=== PATIENT | male | born 1940 | race Caucasian/White ===

== ENCOUNTER → 2016-06-30 | Outpatient (CLI) | payer OTHER ==
[~2016-06-30] MED LIST: IOPAMIDOL (ISOVUE-300) 100 ML BTL IV ONE
== END ==
LOC: CIMAGING 10:40
PROVIDERS: ATTEND Specialist
DX: R31.9 Hematuria, unspecified (principal); N40.0 Benign prostatic hyperplasia without lower urinary tract symptoms; N28.1 Cyst of kidney, acquired
CPT/HCPCS: 74178; Q9967

== ENCOUNTER → 2016-08-05 | Outpatient (CLI) | payer OTHER | LOC: BMCIMAGING 10:37 | PROVIDERS: ATTEND Internal Medicine | DX: R06.02 Shortness of breath (principal) ==

== ENCOUNTER → 2016-08-20 | Outpatient (CLI) | payer OTHER | LOC: BHFA 13:00 | PROVIDERS: ATTEND Internal Medicine Cardiovascular Disease | DX: I44.7 Left bundle-branch block, unspecified (principal); R00.2 Palpitations | CPT/HCPCS: 78452; 93017; A9500; J2785 ==

== ENCOUNTER 2016-08-24 15:02 | Inpatient (IN) | payer OTHER ==
--- NOTE | 2016-08-24 16:32 | EDPHY ---
H & P Stated Complaint: tim tomorrow Time Seen by Provider: 08/24/16 15:53 HPI/ROS: CHIEF COMPLAINT: Pre syncope HISTORY OF PRESENT ILLNESS: The patient is a 75-year-old gentleman who comes to the emergency department for admission for pre syncope and arrhythmia. I saw him in conjunction with Dr. Caballero who will admit him. He has a history of intermittent dizzy spells for the last couple of years. He had a interventricular conduction delay history which recently progressed to left bundle branch block. He recently had an adenosine stress test that was negative other than a nonspecific AV block. He was placed with a monitor and today during a episode of presyncope found to be in 2nd degree type [address] Caballero told him to come to the hospital be admitted to Dr. Caballero's service. He will be fitted with pacemaker during his stay. REVIEW OF SYSTEMS: Constitutional: denies: chills, fever, recent illness, recent injury EENTM: denies: blurred vision, double vision, nose congestion Respiratory: denies: cough, shortness of breath Cardiac: See HPI Gastrointestinal/Abdominal: denies: abdominal pain, diarrhea, nausea, vomiting, blood streaked stools Genitourinary: denies: dysuria, frequency, hematuria, pain Musculoskeletal: denies: joint pain, muscle pain Skin: denies: lesions, rash, jaundice, bruising Neurological: denies: headache, numbness, paresthesia, tingling, dizziness, weakness Hematologic/Lymphatic: denies: blood clots, easy bleeding, easy bruising Immunologic/allergic: denies: HIV/AIDS, transplant EXAM: GENERAL: Well-appearing, well-nourished and in no acute distress. HEAD: Atraumatic, normocephalic. EYES: Pupils equal round and reactive to light, extraocular movements intact, sclera anicteric, conjunctiva are normal. ENT: TMs normal, nares patent, oropharynx clear without exudates. Moist mucous membranes. NECK: Normal range of motion, supple without lymphadenopathy or JVD. LUNGS: Breath sounds clear to auscultation bilaterally and equal. No wheezes rales or rhonchi. HEART: Regular rate and rhythm without murmurs, rubs or gallops. ABDOMEN: Soft, nontender, normoactive bowel sounds. No guarding, no rebound. No masses appreciated. BACK: No CVA tenderness, no spinal tenderness, step-offs or deformities EXTREMITIES: Normal range of motion, no pitting or edema. No clubbing or cyanosis. NEUROLOGICAL: Cranial nerves II through XII grossly intact. Normal speech, normal gait. 5/5 strength, normal movement in all extremities, normal sensation PSYCH: Normal mood, normal affect. SKIN: Warm, dry, normal turgor, no visible rashes or lesions. Source: Patient Exam Limitations: No limitations - Personal History Current Tetanus Diphtheria and Acellular Pertussis (TDAP): Yes - Medical/Surgical History Hx Asthma: No Hx Chronic Respiratory Disease: No Hx Diabetes: No Hx Cardiac Disease: No Hx Renal Disease: No Hx Cirrhosis: No Hx Alcoholism: No Hx HIV/AIDS: No Hx Splenectomy or Spleen Trauma: No Other PMH: LBBB, BPH, high cholesterol, hemorrhoid surg - Family History Significant Family History: No pertinent family hx - Social History Smoking Status: Never smoked Alcohol Use: Sober Drug Use: None Constitutional: Initial Vital Signs Temperature (C) 36.9 C 08/24/16 15:12 Heart Rate 64 08/24/16 15:12 Respiratory Rate 16 08/24/16 15:12 Blood Pressure 136/84 H 08/24/16 15:12 O2 Sat (%) 95 08/24/16 15:12 O2 Delivery Mode Room Air Allergies/Adverse Reactions: ampicillin Allergy (Verified 08/25/16 15:55) Tetracyclines Allergy (Verified 08/24/16 16:55) Home Medications: Medication Instructions Recorded Aspirin [Aspirin 81mg (*)] 81 mg PO DAILY 08/24/16 Simvastatin [Zocor] 20 mg PO HS 08/24/16 Medical Decision Making - Diagnostics EKG Interpretation: An EKG obtained and was read and documented in trace view. Please see trace view for full reading and report. Left bundle branch block ED Course/Re-evaluation: The patient was seen in conjunction with a supervisor green end department. Will admit to their service for pacemaker placement. The patient is currently asymptomatic. EKG he shows stable left bundle branch block. Differential Diagnosis: Partial list of the Differential diagnosis considered include but were not limited to; arrhythmia, pre syncope, dehydration and although unlikely based on the history and physical exam, I also considered infection, head injury, seizure. - Data Points Medications Given: Discontinued Medications Bacitracin (Bacitracin 1000 Ml Irrigation) 50,000 units IRR ONCALL ONE Stop: 08/25/16 09:36 Last Admin: 08/25/16 17:10 Dose: Not Given Diazepam (Valium) 5 mg PO ONCALL ONE Stop: 08/25/16 09:36 Last Admin: 08/25/16 11:08 Dose: 5 mg Diphenhydramine HCl (Benadryl) 25 mg PO ONCALL ONE Stop: 08/25/16 09:36 Last Admin: 08/25/16 11:08 Dose: 25 mg Vancomycin/Sodium Chloride (Vancomycin 1 Gm (Premix)) 250 mls @ 250 mls/hr IV ONCALL ONE PRN Reason: Protocol Stop: 08/25/16 17:17 Last Admin: 08/25/16 17:11 Dose: Not Given Departure - Departure Disposition: [facility] Inpatient Acute Clinical Impression: Pre-syncope Condition: Fair
[2016-08-24] MEDS ORDERED: IBUPROFEN 200 MG TAB PO PRN (16:59)
[2016-08-24] MEDS ORDERED: TEMAZEPAM 15 MG CAP PO PRN (16:59)
--- NOTE | 2016-08-24 18:15 | CPEKG ---
Heart Rate: 55 RR Interval: 1091 P-R Interval: 216 QRSD Interval: 150 QT Interval: 472 QTC Interval: 452 P [place]: 37 QRS [place]: -57 T Wave [place]: 107 EKG Severity - ABNORMAL ECG - EKG Impression: SINUS RHYTHM EKG Impression: PROBABLE LEFT ATRIAL ABNORMALITY EKG Impression: LEFT BUNDLE BRANCH BLOCK EKG Impression: FIRST DEGREE AVB Electronically Signed By: Nehemias Taveras 28-Aug-2016 12:06:25
--- NOTE | 2016-08-24 18:16 | GHP ---
[f rep st] HISTORY AND PHYSICAL DATE OF ADMISSION: 08/24/2016 CHIEF COMPLAINT: We have been asked by Dr. Murguia to evaluate this patient with a chief complaint of presyncope. HISTORY OF PRESENT ILLNESS: This patient is a 75-year-old gentleman with risk factors including age and hyperlipidemia, who presents with a chief complaint of presyncope. The patient was in his [facility] until 3-6 months ago when he began to experience symptoms of lightheadedness. The re were no obvious precipitating or relieving factors. The patient denies symptoms of chest pain or palpitations with the event. He had an EKG done by his primary care physician, which demonstrated a left bundle branch block. He was referred to Cardiology for further evaluation. He had a nuclear stress test performed, which demonstrated no evidence of ischemia or infarction, and preserved left ventricular systolic function. During pharmacologic stress, the patient did develop a type 2 AV bl ock and he was subsequently scheduled for an event monitor. On the a.m. of admission, the patient r eports going out to breakfast with his and walking along the [employer]. While walking along the [employer], the patient did develop symptoms of lightheadedness and dizziness. Her e again, he denies symptoms of chest pain or palpitations with the event. Unfortunately, he was not wearing his monitor when his symptoms were most severe. Upon returning home, the patient placed hi s event monitor on and sent a rhythm strip to [employer]. The rhythm strip was notable for a second- degree type 2 AV block, and the patient presented to the emergency department for further evaluation . The patient denies further episodes of lightheadedness or dizziness. PAST MEDICAL HISTORY: 1. Hyperlipidemia. 2. Benign prostatic hypertrophy. 3. Degenerative disk disease. PAST SURGICAL HISTORY: Status post external hemorrhoidectomy. MEDICATIONS: 1. Aspirin 81 mg daily. 2. Simvastatin 20 mg daily. ALLERGIES: 1. AMPICILLIN. 2. TETRACYCLINES. SOCIAL HISTORY: The patient does not smoke. He denies problems with alcohol. He frequently travel s. FAMILY HISTORY: Noncontributory. REVIEW OF SYSTEMS: A 10-point review of systems is negative, except as noted in the HPI. The patie nt does report a recent hemorrhoidectomy with some pain in the area, but he has not required any heaven n medication as of recently. PHYSICAL EXAMINATION: GENERAL: The patient is resting comfortably in bed. He does not appear to b e in acute distress. VITAL SIGNS: Temperature is afebrile. Pulse is 64, blood pressure 136/84, re spiratory rate 16, SaO2 95% on room air. HEENT: Normocephalic, atraumatic. Extraocular muscles in tact. The patient does were glasses. NECK: No JVD. No bruits. LUNGS: Clear to auscultation juan pablo aterally. CARDIOVASCULAR: Regular rate and rhythm. S1 paradoxically split S2. Grade 2/6 holosyst olic murmur is noted at the left sternal border. ABDOMEN: Soft nontender, with normoactive bowel s ounds. No hepatosplenomegaly noted. SKIN: No evidence of rashes. EXTREMITIES: No edema. NEURO: The patient is awake, alert, and oriented x3. LABORATORIES: Pending at this time. IMAGING: EKG demonstrates sinus rhythm with left bundle branch block morphology. ASSESSMENT: This patient is a 75-year-old gentleman who presents with symptoms of presyncope. He h as a baseline left bundle branch block on his EKG. Subsequent event monitoring is notable for a sec ond degree type 2 AV block. PLAN: Reviewed the risks and benefits of pacemaker placement for symptom management. Will arrange to have this performed in the a.m. I would like to obtain an echocardiogram to evaluate for structu ral disease. However, prior to placement of the pacemaker, recent cardiovascular stress test demons trates no evidence of ischemia or infarction with preserved left ventricular systolic function. /[id number]/MODL
[2016-08-24] MEDS: ATORVASTATIN CALCIUM 10 MG TAB PO SCH ×3 (21:44→22:00)
[2016-08-25 08:10] LABS: HEMATOCRIT 45.8 % (40.0-51.0); HEMOGLOBIN 15.8 g/dL (13.7-17.5); MEAN CELL HEMOGLOBIN 31.2 pg (27.9-34.1); MEAN CELL HEMOGLOBIN CONCENTR. 34.5 g/dL (32.4-36.7); MEAN CELL VOLUME 90.3 fL (81.5-99.8); RED BLOOD CELL COUNT 5.07 10^6/uL (4.40-6.38)
[2016-08-25 08:19] LABS: INR 1.06 (0.83-1.16); PROTIME(PATIENT) 13.7 SEC (12.0-15.0)
[2016-08-25 08:25] LABS: ALANINE AMINOTRANSFERASE 36 IU/L (21-72); ALBUMIN 3.8 g/dL (3.5-5.0); ALKALINE PHOSPHATASE 53 IU/L (38-126); ANION GAP 7 mEq/L (8-16); ASPARTATE AMINOTRANSFERASE 21 IU/L (17-59); BILIRUBIN,TOTAL 1.5 mg/dL (0.1-1.4); BILIRUBIN-CONJUGATED 0.2 mg/dL (0.0-0.5); BILIRUBIN-UNCONJUGATED 1.3 mg/dL (0.0-1.1); CALCIUM 9.2 mg/dL (8.5-10.4); CARBON DIOXIDE 25 mEq/l (22-31); CHLORIDE 107 mEq/L (97-110); CHOLESTEROL 128 mg/dL (140-220); CHOLESTEROL/HDL RATIO 2.61 RATIO (1.00-4.97); GLOMERULAR FILTRATION RATE > 60; GLUCOSE 99 mg/dL (70-100); HIGH DENSITY LIPOPROTEIN 49 mg/dL (40-65); LDL/HDL RATIO 1.24 RATIO (1.00-3.64); LOW DENSITY LIPOPROTEIN 61 mg/dL (80-100); NON-HIGH DENSITY LIPOPROTEIN 79 mg/dL (90-129); POTASSIUM 4.3 mEq/L (3.5-5.2); SODIUM 139 mEq/L (134-144); TOTAL PROTEIN 6.4 g/dL (6.3-8.2); TRIGLYCERIDE 93 mg/dL (40-150); VERY LOW DENSITY LIPOPROTEINS 18 mg/dL (8-25)
[2016-08-25] MEDS ORDERED: ATORVASTATIN CALCIUM 10 MG TAB PO SCH (09:00)
[2016-08-25] MEDS ORDERED: DIAZEPAM 5 MG TAB PO ONE (09:35)
[2016-08-25] MEDS ORDERED: BACITRACIN IRRIGATION/NS 50,000 UNITS/1,000 ML BTL IRR ONE (09:35)
[2016-08-25] MEDS ORDERED: diphenhydrAMINE 25 MG CAP PO ONE (09:35)
--- NOTE | 2016-08-25 09:35 | SOAPPROG ---
ANNIE Progress Note Assessment/Plan: Assessment: He has a history of known conduction system disease in the form of a left bundle branch block. Telemetry monitoring has indicated intermittent episodes of Mobitz type 2 second-degree AV block. At this point, he clearly has a class 1 indication for permanent pacing. The risks, benefits and alternatives were discussed with him today. He is in agreement. We will plan for left-sided implant. 08/25/16 09:34 Subjective: The patient was seen and examined. His chart was reviewed. The case was discussed with Dr. Nehemias Caballero. Has a history of a left anterior fascicular block which was documented recently to progress to a complete left bundle branch block. He has been experiencing symptoms of lightheadedness. On home telemetry monitoring ([employer]) it has been noted that he has had multiple episodes of Mobitz type 2 second-degree AV block. He has, however, not experienced prolonged pauses. He was asked to come into the hospital yesterday. He has been admitted overnight. Telemetry has demonstrated similar episodes of type 2 second-degree AV block. He states that today he feels a little lightheaded. He has not had full episodes of syncope. Objective: Vital Signs Temp Pulse Resp BP Pulse Ox 36.8 C 64 14 130/82 H 94 08/25/16 08:00 08/25/16 08:00 08/25/16 08:00 08/25/16 08:00 08/25/16 08:00 Laboratory Results 08/25/16 08:00 08/25/16 08:00 08/24/16 08/25/16 08/26/16 05:59 05:59 05:59 Intake Total 500 Balance 500 PT 13.7 SEC (12.0-15.0) 08/25/16 08:00 INR 1.06 (0.83-1.16) 08/25/16 08:00 Physical Exam - Physical Exam General Appearance: WD/WN, no apparent distress Neck: non-tender, full range of motion Respiratory: lungs clear, No crackles, No rales, No rhonchi Cardiac/Chest: regular rate, rhythm, No edema, No gallop, No JVD Peripheral Pulses: 2+: carotid (R), carotid (L) Abdomen: non-tender, soft Male Genitalia: deferred Rectal: deferred ICD10 Worksheet Patient Problems: Problems Problem Status Onset Pre-syncope Acute
[2016-08-25] MEDS ORDERED: NS 1,000 ML IV SCH (09:45)
--- NOTE | 2016-08-25 09:49 | ECHO ---
[id number] + + [address] : : [place] [address] : : [phone] + Adult Echocardiographic Report + ---+ :Name: ISIDRO FRANKEL JStudy Date: 08/25/2016 07:36 AM : : Hospital Admission Number: [id number] Location: 202: :: 1940 Gender: Male Height: 68 in : :Age: 75 yrs Race: WH Weight: 178 lb : :Reason For Study: LBBB/pre syncope : : BSA: 1.9 meters2 : + ---+ MMode/2D Measurements \T\ Calculations IVSd: 1.1 cm LVIDd: 4.1 cm FS: 21.8 % Ao root diam: LVPWd: 0.75 cm LVIDs: 3.2 cm EDV(Teich): 3.7 cm 75.7 ml LA dimension: ESV(Teich): 3.9 cm 42.0 ml EF(Teich): 44.6 % LVLd ap4: 8.0 cm SV(MOD-sp4): EDV(MOD-sp4): 59.0 ml 84.0 ml LVLs ap4: 6.8 cm ESV(MOD-sp4): 25.0 ml EF(MOD-sp4): 70.2 % Normal Measurement Values: + + :LVIDd (3.5-5.7cm) IVSd (0.6-1.1cm) LVPWd (0.6-1.1cm) Aortic Root (2.0-3.7cm)Left Atrium (1.5-4.0cm): :LV Vol(d) (76-115ml) LV Vol(s) (29-48ml) Ejec Fraction (50-65%)PV Candido (0.6- 1.2m/s) TV Candido (0.4-1.0m/s) : :MV E Candido (0.8-1.0m/s)MV A Candido (0.3-1.0m/s)LVOT Candido (0.7-1.2m/s) Asc Ao Candido ( 0.9-1.8m/s) : + + Doppler Measurements \T\ Calculations MV E max candido: 60.7 cm/sec Ao V2 max: 123.8 cm/sec TR max candido: 200.6 cm/sec MV A max candido: 75.5 cm/sec Ao max P.1 mmHg TR max P.1 mmHg MV E/A: 0.80 RAP systole: 5.0 mmHg RVSP(TR): 21.1 mmHg Left Ventricle The left ventricle is normal in size. There is mild asymetric septal hypertrophy. Left ventricular systolic function is normal. Ejection Fraction = 60-65%. Right Ventricle The right ventricle is normal in size and function. Atria The left atrial size is normal. Right atrial size is normal. Mitral Valve The mitral valve is normal in structure and function. There is no mitral valve stenosis. There is mild to moderate mitral regurgitation. Tricuspid Valve Normal tricuspid valve. There is trace tricuspid regurgitation. Right ventricular systolic pressure is normal. Aortic Valve The aortic valve is trileaflet. All three leaflets are sclerotic. There is no aortic stenosis. Mild aortic regurgitation. Pulmonic Valve The pulmonic valve is not well visualized. Trace pulmonic valvular regurgitation. Great Vessels The aortic root is normal size. Pericardium/Pleural There is no pericardial effusion. There is a fat pad seen. Conclusion A complete two-dimensional transthoracic echocardiogram was performed (2D, M-mode, Doppler and color flow Doppler). 1. The left ventricle is normal in size. There is mild asymetric septal hypertrophy. The Ejection Fraction = 60-65%. 2. The mitral valve is normal in structure and function. There is mild to moderate mitral regurgitation. 3. The aortic valve is trileaflet. All three leaflets are sclerotic. There is no aortic stenosis. Mild aortic regurgitation. 4. The pulmonary artery pressure estimate is with in normal limits. 5. No old studies for comparison. Final Reading Physician: Nehemias Caballero MD electronically signed on 08/25/2016 09:48 AM Ordering Physician: Nehemias Caballero Performed By: Zandra Lara RDCS
[2016-08-25] MEDS ORDERED: fentaNYL 100 MCG/2 ML INJ ONE ×2 (13:20→13:37)
[2016-08-25] MEDS ORDERED: LIDOCAINE 1% 300 MG/30 ML SDV ONE (13:20)
[2016-08-25] MEDS ORDERED: BUPIVACAINE 0.5% 30 ML SDV ONE (13:21)
[2016-08-25] MEDS ORDERED: LIDO/EPI 1% **for epidural** 30 ML SDV ONE (13:21)
[2016-08-25] MEDS ORDERED: MIDAZOLAM 2 MG/2 ML VIAL ONE ×2 (13:21→13:37)
[2016-08-25] MEDS ORDERED: IOPAMIDOL (ISOVUE-300) 100 ML BTL ONE (13:22)
[2016-08-25] MEDS ORDERED: VANCOMYCIN HCL/NORMAL SALINE 250 ML IV ONE (16:18)
[2016-08-25] MEDS: ATORVASTATIN CALCIUM 10 MG TAB PO SCH (20:22)
[2016-08-26] MEDS ORDERED: BACITRACIN IRRIGATION/NS 50,000 UNITS/1,000 ML BTL IRR ONE (06:00)
[2016-08-26] MEDS ORDERED: diphenhydrAMINE 25 MG CAP PO ONE ×2 (06:00→14:26)
[2016-08-26] MEDS ORDERED: DIAZEPAM 5 MG TAB PO ONE (06:00)
[2016-08-26] MEDS ORDERED: VANCOMYCIN HCL/NORMAL SALINE 250 ML IV ONE (06:00)
--- NOTE | 2016-08-26 08:02 | CPEKG ---
Heart Rate: 59 RR Interval: 1017 P-R Interval: 208 QRSD Interval: 148 QT Interval: 464 QTC Interval: 460 P [place]: 31 QRS [place]: -53 T Wave [place]: 106 EKG Severity - ABNORMAL ECG - EKG Impression: SINUS RHYTHM EKG Impression: PROBABLE LEFT ATRIAL ABNORMALITY EKG Impression: LEFT BUNDLE BRANCH BLOCK Electronically Signed By: Nehemias Taveras 28-Aug-2016 12:06:02
[2016-08-26] MEDS ORDERED: LIDOCAINE 1% 300 MG/30 ML SDV ONE (13:02)
[2016-08-26] MEDS ORDERED: MIDAZOLAM 2 MG/2 ML VIAL ONE (13:02)
[2016-08-26] MEDS ORDERED: BUPIVACAINE 0.5% 30 ML SDV ONE (13:02)
[2016-08-26] MEDS ORDERED: LIDO/EPI 1% **for epidural** 30 ML SDV ONE (13:02)
[2016-08-26] MEDS ORDERED: fentaNYL 100 MCG/2 ML INJ ONE (13:02)
[2016-08-26] MEDS ORDERED: DIAZEPAM 5 MG TAB ONE (14:26)
--- NOTE | 2016-08-26 16:13 | PDCTREPORT ---
Cardiothoracic Procedure Rpt Cardiothoracic Procedure Report: Procedure: Implantation of a dual-chamber pacemaker. Indication: Second-degree AV block with syncope. After obtaining informed consent and having a long discussion about the device with the patient's family was elected to proceed with implantation. Patient was brought to the cardiac catheterization lab in the fasting state. The left subclavian access site was sterilely prepped and draped. 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 The right subclavian site was then sterilely prepped and draped. Subclavian venogram revealed a patent vein to the right atrium. Using a 10 blade an incision was made below the clavicle. Using combination of sharp and blunt dissection a pacemaker pocket was created. Bacitracin soaked sponge was placed in the pocket. Hemostasis was achieved. Using 18 gauge percutaneous needle guide wires were advanced in the right heart x2.. Using 6 Turkmen safety sheaths leads were advanced in the RV apex and right atrial appendage. Of note fluoroscopy needed to be placed in the ONTIVEROS projection to obtain appropriate images. Appropriate sensitivities and thresholds were confirmed. She has were torn away. The leads were secured to the fascia using 0 Ethibond x2. Sponge was removed from the pocket. It was copiously irrigated. Generator was delivered to the field and attached to the leads. Setscrews were tightened per industry standards. The entire system was coiled into the pocket. Pocket was closed using 2 0 Vicryl. Subcutaneous layer was closed using 3 0 Vicryl. Subcutaneous stitch was used to close the skin. Pressure dressing was applied the patient is taken to recovery for continued care. The device is an [employer] Surgical2 model [id number]. Right atrial lead is a tendril SDS 78182 TC/46. Serial number [id number]. Right ventricular lead is a tendril SDS 8 PC 50 2 cm. Serial number [id number] Right atrial capture was at 0.7 volts with a pulse with 0.4 milliseconds. Sensing was 3.8 mV. Impedance was 484 Ohms. Right ventricular capture was point 6 volts at 0.4 milliseconds. Sensing was 9.1 mV. Impedance was 643 Ohms. Final diagnosis successful implantation of a dual-chamber pacemaker. Chest x-ray pending. Results discussed with patient's family. Patient Problems: Problems Problem Status Onset Pre-syncope Acute
--- NOTE | 2016-08-26 16:41 | CPEKG ---
Heart Rate: 63 RR Interval: 952 P-R Interval: 236 QRSD Interval: 152 QT Interval: 496 QTC Interval: 508 P [place]: 38 QRS [place]: -56 T Wave [place]: 98 EKG Severity - ABNORMAL ECG - EKG Impression: ATRIAL-PACED COMPLEXES EKG Impression: FIRST DEGREE AV BLOCK EKG Impression: PROBABLE LEFT ATRIAL ABNORMALITY EKG Impression: LEFT BUNDLE BRANCH BLOCK EKG Impression: AV PACING IS NEW IN COMPARISON TO PRIOR ECGS Electronically Signed By: Nehemias Taveras 28-Aug-2016 12:07:13
[2016-08-26] MEDS: ATORVASTATIN CALCIUM 10 MG TAB PO SCH (20:06)
[2016-08-27 05:32] LABS: % IMMATURE GRANULYOCYTES 0.3 % (0.0-1.1); ABSOLUTE IMMATURE GRANULOCYTES 0.03 10^3/uL (0.00-0.10); ADD DIFF? NO; ADD MORPH? NO; ADD SCAN? NO; ATYPICAL LYMPHOCYTE FLAG 0 (0-99); FRAGMENT RBC FLAG 0 (0-99); HEMATOCRIT 44.5 % (40.0-51.0); HEMOGLOBIN 15.2 g/dL (13.7-17.5); LEFT SHIFT FLG 0 (0-99); LIPEMIA HEMOLYSIS FLAG 90 (0-99); MEAN CELL HEMOGLOBIN 31.3 pg (27.9-34.1); MEAN CELL HEMOGLOBIN CONCENTR. 34.2 g/dL (32.4-36.7); MEAN CELL VOLUME 91.6 fL (81.5-99.8); MEAN PLATELET VOLUME 10.2 fL (8.7-11.7); PLATELET CLUMPS FLAG 0 (0-99); PLATELET COUNT 190 10^3/uL (150-400); RED BLOOD CELL COUNT 4.86 10^6/uL (4.40-6.38); RED CELL DISTRIBUTION WIDTH 11.9 % (11.5-15.2)
[2016-08-27 06:49] LABS: CALCIUM 8.8 mg/dL (8.5-10.4); CARBON DIOXIDE 24 mEq/l (22-31); CHLORIDE 106 mEq/L (97-110); CREATININE 0.9 mg/dL (0.7-1.3); GLOMERULAR FILTRATION RATE > 60; GLUCOSE 72 mg/dL (70-100); SODIUM 137 mEq/L (134-144)
[2016-08-27 07:48] VITALS: BP 155/92; PULSE 84; RESP 18; TEMP 97.6; O2SAT 96
[2016-08-27 07:58] LABS: ANION GAP 7 mEq/L (8-16); POTASSIUM 4.1 mEq/L (3.5-5.2)
--- NOTE | 2016-08-27 08:49 | CPEKG ---
Heart Rate: 78 RR Interval: 769 P-R Interval: 188 QRSD Interval: 164 QT Interval: 456 QTC Interval: 520 P [place]: 47 QRS [place]: -76 T Wave [place]: 91 EKG Severity - ABNORMAL ECG - EKG Impression: ATRIAL-SENSED VENTRICULAR-PACED RHYTHM EKG Impression: AV PACING IS NEW IN COMPARISON TO PRIOR ECG Electronically Signed By: Nehemias Taveras 28-Aug-2016 12:06:50
--- NOTE | 2016-08-27 09:45 | PDDCSUM ---
Discharge Summary Discharge Summary: Admission: 08/24/2016. Discharge: 08/27/2016. Admission diagnosis: Presyncope. Discharge diagnosis syncope status post permanent pacemaker insertion for second -degree AV block left hemiblock and junctional rhythm. Procedures done during this hospitalization: Echocardiogram, permanent pacemaker insertion. Hospital course: Mr. Bañuelos is a 75-year-old male found to have high degree second -degree AV block and junctional rhythm on Holter monitoring. He was admitted to the hospital with presyncope. He had a permanent pacemaker implanted without complication. Dizziness has resolved with normal ambulation. He is feeling well. Today on physical examination is blood pressure is 130/70. Heart rate is 70. Pacemaker site is healing well without erythema or edema. Radial pulses are +2 and equal bilaterally. There is no swelling of the right or left arm. His chest is clear to auscultation and percussion. Cardiac exam showed a regular rate and rhythm. Pacemaker interrogation today showed the device to be working well. Chest x-ray shows no complications. Patient will be followed up with a wound check in 1 week. Return to primary care Dr. Shore. Follow-up cardiology 30 days.
== END 2016-08-27 12:28 | disposition home or self-care (01) | DRG 244 ==
LOC: OBSVTOIN 16:23 → F2W 17:22
PROVIDERS: ADMIT Internal Medicine Cardiovascular Disease; ATTEND Internal Medicine Interventional Cardiology
PROC: 0JH606Z Insertion of Pacemaker, Dual Chamber into Chest Subcutaneous Tissue and Fascia, Open Approach (ICD-10-PCS; principal; 2016-08-26)
PROC: 02H63JZ Insertion of Pacemaker Lead into Right Atrium, Percutaneous Approach (ICD-10-PCS; principal; 2016-08-26)
PROC: 02HK3JZ Insertion of Pacemaker Lead into Right Ventricle, Percutaneous Approach (ICD-10-PCS; principal; 2016-08-26)
DX: I44.1 Atrioventricular block, second degree (principal); R55 Syncope and collapse; E78.5 Hyperlipidemia, unspecified
CPT/HCPCS: C1785; C1898; J2250; J3010; J3370; Q9967

== ENCOUNTER → 2017-11-11 | Outpatient (CLI) | payer OTHER | DX: M51.36 Other intervertebral disc degeneration, lumbar region (principal); M47.816 Spondylosis without myelopathy or radiculopathy, lumbar region; M99.23 Subluxation stenosis of neural canal of lumbar region; M48.061 Spinal stenosis, lumbar region without neurogenic claudication ==